=== PATIENT | female | born 1975 | race Caucasian/White ===

== ENCOUNTER 2021-02-08 00:18 | Emergency (ER) | payer OTHER ==
[2021-02-08] MEDS ORDERED: RALTEGRAVIR POTASSIUM 400 MG TAB PO ONE (00:34)
[2021-02-08] MEDS ORDERED: EMTRICITABINE 200MG/TENOFOVIR 300MG PO ONE (00:34)
[2021-02-08] MEDS ORDERED: HIV POST EXPOSURE PROPHYLAXIS KIT PO ONE (00:43)
[2021-02-08 00:59] VITALS: BP 112/74; PULSE 80; TEMP 97.6; BMI 21.9
[2021-02-08 02:31] LABS: BASO % 0.4 % (0-2.0); EOS % 2.6 % (0-4.5); HEMOGLOBIN 12.3 GM/dL (10.7-15.3); LYMPH % 47.1 % (8-40); MCH 29.4 pg (25.7-33.7); MCHC 34.1 g/dl (32.0-36.0); MEAN CELL VOLUME 86.2 fl (80-96); MONO % 6.9 % (3.8-10.2); PLATELET COUNT 272 10^3/uL (134-434); RBC 4.18 M/mm3 (3.60-5.2); RDW 13.2 % (11.6-15.6); WHITE BLOOD COUNT 7.4 K/mm3 (4.0-10.0)
[2021-02-08 02:54] LABS: CHLORIDE 102 mmol/L (98-107); SODIUM 139 mmol/L (136-145)
[2021-02-08 02:56] LABS: CALCIUM 9.3 mg/dL (8.5-10.1); GAMMA GLUTAMYL TRANSPEPTIDASE 16 U/L (5-85)
[2021-02-08 02:57] LABS: ALBUMIN 4.3 g/dl (3.4-5.0); ANION GAP 7 MMOL/L (8-16); BLOOD UREA NITROGEN 9.5 mg/dL (7-18); CO2 29 mmol/L (21-32); GLUCOSE,RANDOM 84 mg/dL (74-106)
[2021-02-08 02:59] LABS: SGPT/ALT 31 U/L (13-61)
[2021-02-08 03:00] LABS: CHOLESTEROL 194 mg/dL (50-200); CREATININE 0.6 mg/dL (0.55-1.3); SGOT/AST 21 U/L (15-37); TRIGLYCERIDES 129 mg/dL (0-150); URIC ACID 4.1 mg/dL (2.6-7.2)
[2021-02-08 03:01] LABS: BILIRUBIN,TOTAL 0.4 mg/dL (0.2-1); LDH 180 U/L (84-246)
[2021-02-08 03:02] LABS: ALK PHOS 24 U/L (45-117)
[2021-02-08 03:50] LABS: HIV INTERPRETATION NEGATIVE (NEGATIVE)
== END 2021-02-08 03:11 | disposition home or self-care (01) ==
LOC: JER 00:18
DX: Z77.21 Contact with and (suspected) exposure to potentially hazardous body fluids (principal)
CPT/HCPCS: 36415; 80053; 82465; 82977; 83615; 84100; 84478; 84550; 84702; 85025; 86317; 86704; 86706; 86803; 87340; 87389; 99283-25

== ENCOUNTER 2021-08-20 06:27 | Emergency (ER) | payer OTHER ==
[2021-08-20 06:44] VITALS: BP 108/70; PULSE 76; TEMP 98; BMI 21.9
[2021-08-20 07:11] LABS: BASO % 1.1 % (0-2.0); EOS % 2.4 % (0-4.5); HEMATOCRIT 36.4 % (32.4-45.2); LYMPH % 49.1 % (8-40); MCH 28.6 pg (25.7-33.7); MCHC 33.1 g/dl (32.0-36.0); MEAN CELL VOLUME 86.5 fl (80-96); MONO % 6.6 % (3.8-10.2); NEUT % 40.8 % (42.8-82.8); PLATELET COUNT 253 10^3/uL (134-434); RBC 4.21 M/mm3 (3.60-5.2); RDW 12.6 % (11.6-15.6); WHITE BLOOD COUNT 4.9 K/mm3 (4.0-10.0)
[2021-08-20 07:27] LABS: ALBUMIN 3.8 g/dl (3.4-5.0); BLOOD UREA NITROGEN 10.4 mg/dL (7-18)
[2021-08-20 07:30] LABS: CREATININE 0.7 mg/dL (0.55-1.3); PHOSPHOROUS 4.2 mg/dL (2.5-4.9)
[2021-08-20 07:31] LABS: TOT PROT 7.2 g/dl (6.4-8.2)
[2021-08-20 07:32] LABS: BILIRUBIN,TOTAL 0.6 mg/dL (0.2-1)
[2021-08-20 09:46] LABS: URIC ACID 3.8 mg/dL (2.6-7.2)
[2021-08-20 19:28] LABS: HIV INTERPRETATION NEGATIVE (NEGATIVE)
== END 2021-08-20 06:57 | disposition home or self-care (01) ==
LOC: JER 06:27
DX: Z77.21 Contact with and (suspected) exposure to potentially hazardous body fluids (principal)
CPT/HCPCS: 36415; 80053; 82465; 82977; 83615; 84100; 84478; 84550; 85025; 86704; 86803; 87340; 87389; 87517; 99283-25